=== PATIENT | female | born 1950 | race Caucasian/White ===

== ENCOUNTER 2019-06-01 07:13 | Inpatient (IN) | payer OTHER ==
[2019-05-30 10:51] LABS: MCH 30.3 pg (26.0-34.0); MCHC 33.3 g/dL (28.0-37.0); RBC 4.94 mil/uL (4.20-5.00); RDW 14.4 % (10.5-14.5); WBC 6.7 thou/uL (4.0-11.0)
[2019-05-30 10:56] LABS: URINE BILIRUBIN NEGATIVE (Negative); URINE BLOOD NEGATIVE (Negative); URINE CLARITY SL CLOUDY; URINE COLOR YELLOW; URINE GLUCOSE-RANDOM* TRACE (Negative); URINE KETONES NEGATIVE (Negative); URINE NITRITE-REFLEX NEGATIVE (Negative); URINE PROTEIN (DIPSTICK) NEGATIVE (Negative); URINE SPECIFIC GRAVITY 1.015 (1.005-1.035); URINE UROBILINOGEN 0.2 E.U./dl (0.2-1.0)
[2019-05-30 11:00] LABS: CREATININE 0.9 mg/dL (0.6-1.0); POTASSIUM 4.5 mmol/L (3.5-5.1)
[2019-05-30 11:05] LABS: PROTIME 9.8 Seconds (9.3-11.4); URINE LEUKOCYTES-REFLEX 2+ (Negative)
[2019-05-30 11:15] LABS: SQUAMOUS >10 Many /LPF (0-3)
[2019-05-30 11:16] LABS: BACTERIA-REFLEX 1-9 Few /HPF (None Seen); CASTS None Seen /LPF (None Seen); CRYSTALS None Seen /LPF (None Seen); TRANSITIONAL EPITHEL CELL 0-3 Few /LPF (None Seen); URINE RBC None Seen /HPF (0-2); URINE WBC-REFLEX 6-15 Few /HPF (0-5)
--- NOTE | 2019-05-31 07:44 | EKG ---
[place] [address] [facility] [place] [place] [address] ELECTROCARDIOGRAM REPORT Name: WIL ORELLANA Room #: PRE IN [facility]#: [id number] ������������������ Admission: ������������������ Attend Phys: Romeo Gardner Discharge: ������������������ Date of : 46 Report #: [id number] ����������������������������������������������������������������� [id number] THIS REPORT FOR: //name// [facility] Test Date: 2019-05-30 Test Time: 10:49:04 Pat Name: WIL ORELLANA Department: Room: Gender: F Canary Raiser: Eugene JUNG : 1950 Requested By: Romeo Grey Order Number: [id number] MD: Samuel Jeffery Measurements Intervals [place] Rate: 76 P: 69 TN: 149 QRS: 28 QRSD: 107 T: 67 QT: 418 QTc: 471 Interpretive Statements Sinus rhythm Nonspecific ST and T wave abnormality No previous ECG available for comparison Electronically Signed On 05-31-2019 7:44:21 CDT by Samuel Jeffery [email or web address] ��������������������������������������������� <ELECTRONICALLY SIGNED> ���������������������������������������� By: Samuel Jeffery MD, [facility] ��������������������������������������������� 05/31/19 0744 1049 1049 Samuel Jeffery MD, FACC /EPI
[2019-06-01] VITALS (7 sets, daily range): BP systolic 115–152; BP diastolic 50–75
[~2019-06-01] VITALS: Ht 165.1 cm; Wt 68.0 kg
--- NOTE | ~2019-06-01 | O ---
[facility] [place] [address] OPERATIVE REPORT Name: WIL ORELLANA Room #: 130-P1 ADM IN M.R.#: [id number] Admission: 06/01/19 ������������������ Attend Phys: Romeo Gardner Discharge: ������������������ Date of : 46 Report #: [id number] THIS REPORT FOR: //name// CC: Romeo CHANDLER Physician staff DATE OF SERVICE: 06/01/2019 PREOPERATIVE DIAGNOSES: Left shoulder pain, rotator cuff tear arthropathy with biceps tendinopathy. POSTOPERATIVE DIAGNOSES: Left shoulder pain, rotator cuff tear arthropathy with biceps tendinopathy. PROCEDURE PERFORMED: Left shoulder reverse total shoulder arthroplasty with open biceps tenodesis. SURGEON: Romeo Grey MD TWISTING FRAME CHANGER: Kim Kumar PA-C. ANESTHESIA: General with preoperative ultrasound-guided interscalene block by Anesthesia. IMPLANTS UTILIZED: DePuy Global Unite size 10 stem and size 1 modular epiphysis ORTIZ coated with a +6 polyethylene liner 38, +2 eccentric glenosphere and standard metaglene, Delta Xtend. DESCRIPTION OF PROCEDURE: After proper identification of the patient and operative site in preoperative holding area, the operative site was signed by myself. Prophylactic antibiotics were given. The patient elected to receive an ultrasound-guided block after reviewing the risks, benefits, alternatives and potential complications with anesthesia. After a satisfactory block, the patient was brought back to the operative suite. After induction of satisfactory general endotracheal anesthesia, the left shoulder was examined. Its range of motion was comparable to the preoperative assessment. The patient was carefully positioned in the beach chair position with head of bed elevated approximately 40 degrees. Left shoulder was sterilely prepped and draped in the usual manner and final skin draping was with an Ioban drape. A Layer3 TV limb positioning system was utilized throughout the entire procedure. Anterior deltopectoral approach was planned. Skin was incised sharply. Full thickness skin flaps were developed. Deltopectoral interval was identified. The patient had very small cephalic vein. This interval was carefully opened and blunt dissection of the subdeltoid space was performed. Thickened bursal tissue was noted. Long head of the biceps tendon was subluxated and partially torn. It [facility] [address] [place] [address] OPERATIVE REPORT Name: ESTEBANWIL M Room #: 130-P1 ADM IN M.R.#: [id number] Admission: 06/01/19 ������������������ Attend Phys: Romeo Gardner Discharge: ������������������ Date of : 46 Report #: [id number] was tenodesed to the upper or the undersurface of the pectoralis major. Proximal end of the stump was then followed. A portion of the subscapularis was still intact, approximately the inferior 60% was still preserved. This was carefully released off the humerus. There were complete tears of the supraspinatus and infraspinatus that were retracted as well as degenerative changes about the glenohumeral joint consistent with the preoperative studies. The rotator cuff tear was irreparable. At this point, using the Delta Xtend cutting guide, a proximal humeral osteotomy was performed and a protection plate was then applied. Small osteophytes and some soft tissue was removed around this area. There was a portion of the teres minor still attached posteriorly. At this point, the joint was reduced. The remaining anterior capsule was carefully released off the subscapularis. Throughout the entire procedure, great care was taken to identify and protect the axillary nerve. At this point, the remaining biceps tendon stump and labrum was excised circumferentially. The labrum and capsule had been carefully elevated off the inferior glenoid as well, right at the junction of the glenoid and labrum. Thickened ball with retracted tenderness and bursal tissue was excised in the region of the retracted cuff tear. At this point, the metaglene guide was carefully placed on the glenoid. The patient overall had a fairly small glenoid. This was centered position of the guide pin and was carefully checked multiple times. It was advanced into the scapular body and deemed to be well positioned. At this point, the glenoid face was reamed and any excess soft tissue was carefully removed. Step drill was utilized. Central hole was contained, the guide pin was removed and a standard metaglene was carefully impacted. It had excellent purchase. Superior and inferior locking screws were placed followed by anterior and posterior nonlocking screws. These were sequentially tightened. Locking screws were locked. There was excellent fixation of the metaglene. The patient had good bone quality. At this point, proximal humerus was again delivered and an acetabular reamer was used to ream the remaining metaphysis. A glenosphere was then advanced over a guidewire, this was a +2, 38 eccentric and once it was fully seated, the screw was rotated counterclockwise until a click was noted. It felt fully seated. Screw was then tightened, impacted and tightened three additional times until it was fully seated. Eccentricity was placed inferior. At this point, a trial stem was placed. A +6 liner provided the best overall fit and stability. These were removed. Two drill holes were placed in the anterior cortex of the humerus. Two #2 FiberWires were passed. The implant was then assembled on the back table. It was a modular Global Unite stem and epiphyseal component. This was then carefully impacted into position in approximately 10 degrees of retroversion. It had excellent purchase inferior. FiberWire suture was passed around the stem and these were used for repair of the subscapularis. After a +6 polyethylene liner had been carefully impacted into position, the joint was reduced. It was stable throughout a full arc of motion and good soft tissue tension was noted on the conjoined tendon. No propensity to dislocate was noted. At this point, the joint was again thoroughly irrigated with antibiotic irrigant as it had been done multiple times throughout the procedure. Axillary nerve was intact. There appeared to be no [facility] [address] [place] [address] OPERATIVE REPORT Name: WIL ORELLANA Room #: 130-P1 ADM IN M.R.#: [id number] Admission: 06/01/19 ������������������ Attend Phys: Romeo Gardner Discharge: ������������������ Date of : 46 Report #: [id number] undue tension on this. Subscapularis was repaired. The remaining portion of the subscapularis was repaired with two modified Kaden-Mathieu stitches with #2 FiberWires. Joint was again thoroughly irrigated and then 1 gram vancomycin powder was utilized, half of it deep, half of it more superficial. Deltopectoral fascia was closed with 0 Vicryl, 2-0 Vicryl for the subcutaneous tissues, and final skin closure with running Monocryl. Dermabond was applied followed by an Aquacel dressing. She was placed in a sling, which will be utilized for 4 weeks postoperatively. Qualified airline pilot/first officer utilized throughout the entire procedure to aid in patient limb positioning, visualization and retraction of soft tissues, instrument passage, closure and sling and dressing application. At time of dictation, the patient was still in the operative suite. ��������������������������������������������� ���������������������������������������� By: ��������������������������������������������� 1037 1314 Romeo Grey MD /nt
[~2019-06-01 07:13] MED LIST: CRESTOR20 MG PO; EFFEXOR 5050 MG/1 T1 PO; FISH OIL 1,001000 M2 PO; GLUCOPHAGE1000 MG PO; PROTONIX40 M1 PO; TRAMADOL 50 MG50 MG PO; VITAMIN B-12500 MCG PO; ZETIA10 MG PO
--- NOTE | 2019-06-01 17:43 | NUR ---
ASSUMED CARE OF PT APPROX. 1615, PT A&OX4, VSS, DENIES PAIN. PATIENT HAS URINATED TODAY, SHE IS UNSTEADY ON HER FEET AND REMAINS A FALL RISK, FALL PRECAUTIONS IN PLACE. LEFT ARM IS IN A SLING, FINGERS ARE APPROPRIATE TO RACE COLOR, WARM TO TOUCH, CAP REFILL LESS THAN 3. ISLAND DRESSING ON LEFT SHOULDER. ANTIBIOTICS AND FLUIDS RAN ORDERED. PT REMAINS ON 2L O2 AND SATS ARE UP TO 96%, NO SIGNS OF DISTRESS, WILL CONTINUE TO MONITOR.
--- NOTE | 2019-06-02 04:15 | NUR ---
ASSUMED CARE OF PT AT 1900HRS. PT AOX4 AND MAKES NEEDS BE KNOWN. PT REPORTS THAT BLOCK ON SURGICAL ARM IS WEARING OFF AND SENSATION IS RETURNING. PAIN IS MANAGED WITH PO PAIN MEDS. SLING IN PLACE ON SURGICAL ARM. SURGICAL ARM IS NEGATIVE FOR COMPLICATIONS. VSS AND NO S/S OF ACUTE DISTRESS. PT WAS UNABLE TO SLEEP THIS SHIFT. ABX TREATMENT CONTINUED. WILL CONTINUE TO MONITOR.
[2019-06-02 05:53] LABS: HEMATOCRIT 35.4 % (37.0-47.0)
[2019-06-02 06:04] LABS: HEMOGLOBIN 11.7 gm/dL (12.0-15.0)
[2019-06-02 06:07] LABS: POTASSIUM 4.1 mmol/L (3.5-5.1)
[2019-06-02 07:39] VITALS: BP 126/56
[2019-06-02 08:39] LABS: CALCIUM 9.3 mg/dL (8.5-10.1); CREATININE 0.8 mg/dL (0.6-1.0)
--- NOTE | 2019-06-02 09:52 | NUR ---
Nutrition: Assessed d/t consult for surgery. Admit: L shoulder surgery. Per operative notes, L total reverse shoulder arthroplasty on 06/01. On interview this AM, pt hopeful for discharge today. Hx DM II, GERD, hyperlipidemia, and anxiety. BG high last night at 226 mg/dl, likely exacerbated by stress as pt reports BGs normally < 150 mg/dl. Takes 1000 mg metformin BID normally. Also on B12 supplement and has a scheduled bowel regimen ordered. Pt denies any appetite or nutrition concerns. Enjoying food extremely well. RD discussed importance of good nutrition with slightly higher protein focus post-op. Pt already does lower CHO and slightly higher protein at home for DM. Pt deemed low nutrition risk; no nutrition interventions indicated at this time.
--- NOTE | 2019-06-02 11:13 | NUR ---
ORDERS RECEIVED FOR EVAL AND TREAT. SPOKE WITH Pt WHO STATES SHE HAS BEEN UP ALREADY AND HAS BEEN WALKING ALL OVER WITHOUT DIFFICULTY. Pt DECLINING FORMAL P.T. EVAL BUT APPEARS SAFE FOR HOME WHEN PAIN UNDER CONTROL
[2019-06-02 13:41] VITALS: BP 126/56
--- NOTE | 2019-06-02 14:03 | NUR ---
PT A&OX4, VSS, PAIN IN LEFT SHOULDER. PAIN MEDICATION GIVEN. AT BEDSIDE. DRESSING INTACT ON LEFT SHOULDER, SMALL AMOUNT OF DRAINAGE. PHARMACY WAS WORKING TO SORT OUT DOSAGE OF VENAFAXINE, BUT PATIENT STATED SHE WILL TAKE IT WHEN SHE GETS HOME. LEFT ARM REMAINS IN SLING, PT WEANED OFF OXYGEN AND SATS FLUCUATE BETWEEN 95% AND 98%. NO SIGNS OF DISTRESS, PT DENIES SOA. PT PAIN BECAME OUT OF CONTROL AND PATIENT WOULD ASK THIS NURSE IF I WAS SURE IF PAIN MEDICATION WAS GIVEN. THIS NURSE STARTED TO HAVE BELLPERSON GO IN AND WITNESS MEDICATION BEING GIVEN WITH ME. IV REMOVED, ALL BELONGINGS WITH PATIENT. PRESCRIPTION AND DISCHARGE PAPERWORK GIVEN.
== END 2019-06-02 15:03 | disposition home or self-care (01) | DRG 483 ==
LOC: 4W 07:13 → PRE 07:13 → 4W 14:37 → ENTRNSPT 06-02 13:51 → EDTRNSPTSTS 06-02 13:52 → 4W 06-02 15:03
PROVIDERS: Physician Assistant Surgical; ADMIT Orthopaedic Surgery Sports Medicine
PROC: 0LS40ZZ Reposition Left Upper Arm Tendon, Open Approach (ICD-10-PCS; principal; 2019-06-01)
PROC: 0RRK00Z Replacement of Left Shoulder Joint with Reverse Ball and Socket Synthetic Substitute, Open Approach (ICD-10-PCS; principal; 2019-06-01)
DX: M75.102 Unspecified rotator cuff tear or rupture of left shoulder, not specified as traumatic (principal); D62 Acute posthemorrhagic anemia; M75.22 Bicipital tendinitis, left shoulder; E78.5 Hyperlipidemia, unspecified; F41.9 Anxiety disorder, unspecified; K21.9 Gastro-esophageal reflux disease without esophagitis; E11.9 Type 2 diabetes mellitus without complications; I10 Essential (primary) hypertension; M19.012 Primary osteoarthritis, left shoulder; Z79.899 Other long term (current) drug therapy
CPT/HCPCS: 10047; 50010; 50101; 50172; 50386; 50417; 50697; 50733; 51320; 52001; 52138; 52256; 52282; 53078; 54118; 55430; 56524; 56525; 56526; 56530; 57095; 57103; 62110; 62900; 64039; 70005

== ENCOUNTER → 2021-04-10 | Outpatient (CLI) | payer OTHER ==
[~2021-04-10] MED LIST changes: +METFORMIN HCL1000 MG PO
[2021-04-10 13:39] LABS: URINE BILIRUBIN NEGATIVE (Negative); URINE BLOOD NEGATIVE (Negative); URINE CLARITY CLEAR; URINE COLOR YELLOW; URINE GLUCOSE-RANDOM* NEGATIVE (Negative); URINE KETONES NEGATIVE (Negative); URINE NITRITE-REFLEX NEGATIVE (Negative); URINE PROTEIN (DIPSTICK) NEGATIVE (Negative); URINE UROBILINOGEN 0.2 E.U./dl (0.2-1.0)
[2021-04-10 13:40] LABS: URINE LEUKOCYTES-REFLEX 1+ (Negative)
[2021-04-10 13:41] LABS: HEMOGLOBIN 12.3 gm/dL (12.0-15.0); MCH 27.8 pg (26.0-34.0); MCHC 34.1 g/dL (28.0-37.0); MCV 81.6 fL (80.0-100.0); RBC 4.42 mil/uL (4.20-5.00); RDW 15.5 % (10.5-14.5); WBC 7.1 thou/uL (4.0-11.0)
[2021-04-10 13:51] LABS: CASTS None Seen /LPF (None Seen); CRYSTALS None Seen /LPF (None Seen); SQUAMOUS 0-3 Few /LPF (0-3)
[2021-04-10 13:52] LABS: BACTERIA-REFLEX >30 Many /HPF (None Seen); URINE WBC-REFLEX 0-5 Rare /HPF (0-5)
[2021-04-10 13:53] LABS: URINE RBC None Seen /HPF (NONE SEEN)
[2021-04-10 13:56] LABS: CALCIUM 9.1 mg/dL (8.5-10.1); CREATININE 0.9 mg/dL (0.6-1.0); POTASSIUM 4.6 mmol/L (3.5-5.1)
--- NOTE | 2021-04-10 14:42 | EKG ---
[address] [address] ELECTROCARDIOGRAM REPORT Name: WIL ORELLANA [id number] Admission: 04/10/21 Attend Phys: Romeo Gardner Discharge: Date of : 46 Report #: [id number] [facility] Test Date: 2021-04-10 Test Time: 13:24:17 Pat Name: WIL ORELLANA Department: Room: Gender: F Educational Assistant: Eugene JUNG : 1950 Requested By: Romeo Grey Order Number: [id number] MD: Darrell Madera Measurements Intervals [place] Rate: 77 P: 64 PA: 156 QRS: 28 QRSD: 108 T: 60 QT: 442 QTc: 501 Interpretive Statements Sinus rhythm LVH with secondary repolarization abnormality Prolonged QT interval Compared to ECG 05/30/2019 10:49:04 Left ventricular hypertrophy now present Early repolarization now present Prolonged QT interval now present ST (T wave) deviation no longer present Electronically Signed On 04-10-2021 14:42:18 CDT by Darrell Madera [email or web address] <ELECTRONICALLY SIGNED> By: Darrell Madera MD, FAC 04/10/21 1442 1324 1324 Darrell Madera MD, [facility] /EPI
[2021-04-10 14:56] LABS: INR 0.91
== END ==
LOC: PAC 11:27
PROVIDERS: ATTEND Orthopaedic Surgery Sports Medicine
DX: Z01.812 Encounter for preprocedural laboratory examination (principal); Z01.810 Encounter for preprocedural cardiovascular examination; S43.421A Sprain of right rotator cuff capsule, initial encounter; I51.7 Cardiomegaly; E11.9 Type 2 diabetes mellitus without complications; M19.011 Primary osteoarthritis, right shoulder; X58.XXXA Exposure to other specified factors, initial encounter; Y93.89 Activity, other specified; Y92.89 Other specified places as the place of occurrence of the external cause; Y99.8 Other external cause status

== ENCOUNTER → 2021-10-07 | Outpatient (CLI) | payer OTHER | LOC: HYPER 07:49 | PROVIDERS: ATTEND Emergency Medicine | DX: T81.31XA Disruption of external operation (surgical) wound, not elsewhere classified, initial encounter (principal); E11.621 Type 2 diabetes mellitus with foot ulcer; L97.522 Non-pressure chronic ulcer of other part of left foot with fat layer exposed; L97.422 Non-pressure chronic ulcer of left heel and midfoot with fat layer exposed; M19.011 Primary osteoarthritis, right shoulder; F41.9 Anxiety disorder, unspecified; Z79.84 Long term (current) use of oral hypoglycemic drugs; Z79.899 Other long term (current) drug therapy; Y83.8 Other surgical procedures as the cause of abnormal reaction of the patient, or of later complication, without mention of misadventure at the time of the procedure; Y92.238 Other place in hospital as the place of occurrence of the external cause ==